=== PATIENT | female | born 1995 | race Caucasian/White ===

== ENCOUNTER 2019-02-20 13:43 | Emergency (ER) | payer SELFPAY ==
[~2019-02-20] VITALS: Ht 162.6 cm; Wt 60.0 kg
[2019-02-20 13:53] VITALS: BP 107/77
[2019-02-20] MEDS ORDERED: FAMOTIDINE 20MG TABLET PO ONE (14:15)
[2019-02-20] MEDS ORDERED: PREDNISONE 20MG TABLET PO ONE (14:15)
[2019-02-20] MEDS ORDERED: DIPHENHYDRAMINE 50MG CAPSULE PO ONE (14:15)
== END 2019-02-20 15:17 | disposition home or self-care (01) ==
LOC: ER 13:43 → EDBD 13:43 → ER 15:17
DX: T78.49XA Other allergy, initial encounter (principal); X58.XXXA Exposure to other specified factors, initial encounter; F17.200 Nicotine dependence, unspecified, uncomplicated
CPT/HCPCS: 99284; J7512; Q0163